=== PATIENT | female | born 1935 | race Caucasian/White ===

== ENCOUNTER 2017-08-29 19:10 | Emergency (ER) | payer MEDICARE, BC ==
[2017-08-29] MEDS ORDERED: HYDROmorphone 0.5 MG/0.5 ML SYRINGE IVPUSH ONE (20:02)
[2017-08-29] MEDS ORDERED: Ondansetron 4 MG/2 ML SDV IVPUSH ONE (20:02)
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
[2017-08-29] MEDS ORDERED: Sodium Chloride 0.9% 1,000 ML IV SCH (20:15)
--- NOTE | 2017-08-31 07:00 | CT ---
Head CT Technique: Multiple axial sections through the brain were obtained. Intravenous contrast was not utilized. Comparison: No previous intracranial imaging. Findings: Ventricles along with basal cisterns and sulci over the convexities are mildly prominent. Mild diminished density is noted within the periventricular and subcortical white matter which is compatible with small vessel ischemic demyelination change. Slight atherosclerotic calcification is seen within the carotid siphon and within the vertebral vessels. No evidence of intracranial hemorrhage. No midline shift or mass effect is seen. Bone window settings were reviewed which show no acute calvarial abnormality. Visualized sinuses are clear. Impression: 1. Mild senescent change. 2. Nothing acute is seen on noncontrast head CT exam. Diagnostic code #2 I agree with preliminary report from [facility], finalized at 08/29/17, 10:46 PM Central Time
--- NOTE | 2017-08-31 07:00 | CR ---
Thoracic spine: AP and lateral views of the thoracic spine were obtained. Comparison: No previous study is available. Moderate to severe compression deformity noted of T9. Mild compression deformity is noted of T12. Disc space narrowing scattered within the mid and lower thoracic spine as well as scattered endplate osteophytes. Moderate compression deformity is noted of T5. Kyphosis is present. Mild scoliosis is noted. Impression: 1. Compression deformities as noted above. Without old study, uncertain if these are acute or old. MRI exam would be needed to further age these findings if clinically needed. 2. Kyphosis and minimal scoliosis. 3. Degenerative change. Diagnostic code #3
--- NOTE | 2017-08-31 07:00 | CR ---
Chest and right ribs: Frontal view of the chest was obtained as well as three views of the right ribs. Comparison: No previous study. Heart size appears within normal limits. Tortuous thoracic aorta is seen. Lungs are clear with no acute parenchymal change. Bony structures are osteopenic. Slight deformity to several lower right anterior ribs is seen which is most likely due to old healed fractures. Fracture is seen within the posterior sixth rib which may be acute. No additional rib abnormality is noted. Impression: 1. Several old right-sided rib fractures. Possible acute fracture within the right upper chest. 2. Other incidental findings. No acute intrathoracic process is seen. Diagnostic code #3
== END 2017-08-29 22:20 | disposition home or self-care (01) ==
LOC: JD.ED 19:10
DX: S22.41XA Multiple fractures of ribs, right side, initial encounter for closed fracture (principal); S00.03XA Contusion of scalp, initial encounter; I47.1 Supraventricular tachycardia; E86.0 Dehydration; E78.00 Pure hypercholesterolemia, unspecified; I10 Essential (primary) hypertension; F17.210 Nicotine dependence, cigarettes, uncomplicated; W19.XXXA Unspecified fall, initial encounter
CPT/HCPCS: 70450; 71101; 72070; 93005; 96361; 96374; 96375; 99284; J1170; J2405; J7040; 93010

== ENCOUNTER 2018-05-21 17:59 | Emergency (ER) | payer MEDICARE, BC ==
[2018-05-21] MEDS ORDERED: traMADol 50 MG Tab PO ONE (19:58)
--- NOTE | 2018-05-21 20:28 | EDM.PDOC ---
ED HPI GENERAL MEDICAL PROBLEM - General Chief Complaint: Lower Extremity Injury/Pain Stated Complaint: RT HIP PAIN Time Seen by Provider: 05/21/18 18:22 Source of Information: Reports: Patient, RN Notes Reviewed History Limitations: Reports: No Limitations - History of Present Illness INITIAL COMMENTS - FREE TEXT/NARRATIVE: Patient is an 83-year-old female who presents to the ED today for evaluation of right hip pain. She states that this started last night. She said she was sitting in her easy chair recliner when she got up, and then instantly had pain in her right hip area. She denies any trauma to the area or falls. She denies any popping clicking or snapping sounds in the area. She states it is painful to walk or bear weight. If she is resting the pain is about a 3 out of 10, if she is bearing weight or moving the pain is an 8 out of 10. She denies any previous hip injury or replacements. She states that she does not have numbness or tingling in her right leg. Treatments [employer]: Reports: Acetaminophen Right Hip Pain Score (Numeric/FACES): 7 - Related Data Allergies Allergy/AdvReac Type Severity Reaction Status Date / Time No Known Allergies Allergy Verified 08/29/17 19:25 Home Meds: Home Meds Aspirin [Halfprin] 81 mg PO DAILY 08/29/17 [History] Rosuvastatin [Crestor] 10 mg PO DAILY 08/29/17 [History] amLODIPine Besylate [Norvasc] 10 mg PO DAILY 08/29/17 [History] Ascorbate Calcium [Vitamin C] 500 mg PO DAILY 05/21/18 [History] Metoprolol Succinate [Toprol XL] 25 mg PO DAILY 05/21/18 [History] Warfarin Sodium [Jantoven] 5 mg PO DAILY 05/21/18 [History] traMADol [Ultram] 50 mg PO Q6H PRN #28 tab 05/21/18 [Rx] Past Medical History HEENT History: Reports: Impaired Vision Cardiovascular History: Reports: High Cholesterol, Hypertension [employer]TER History: Reports: Musculoskeletal History: Reports: Fracture - Past Surgical History HEENT Surgical History: Reports: Cataract Surgery, Tonsillectomy GI Surgical History: Reports: Appendectomy Female Surgical History: Reports: Hysterectomy Social & Family History - Tobacco Use Smoking Status *Q: Current Every Day Smoker Years of Tobacco use: 45 Packs/Tins Daily: 1 - Caffeine Use Caffeine Use: Reports: None - Recreational Drug Use Recreational Drug Use: No Review of Systems - Review of Systems Review Of Systems: See Below Constitutional: Reports: No Symptoms Eyes: Reports: No Symptoms Ears: Reports: No Symptoms Nose: Reports: No Symptoms Mouth/Throat: Reports: No Symptoms Respiratory: Reports: No Symptoms Cardiovascular: Reports: No Symptoms GI/Abdominal: Reports: No Symptoms Genitourinary: Reports: No Symptoms Musculoskeletal: Reports: Joint Pain (Right hip), Muscle Pain. Denies: Leg Pain , Joint Swelling, Muscle Stiffness Skin: Reports: No Symptoms Neurological: Reports: Gait Disturbance (limping). Denies: Numbness, Tingling Psychiatric: Reports: No Symptoms ED EXAM, GENERAL - Physical Exam Exam: See Below Exam Limited By: No Limitations General Appearance: Alert, WD/WN, No Apparent Distress Eye Exam: Bilateral Eye: EOMI, Normal Inspection, PERRL Ears: Normal External Exam Nose: Normal Inspection Throat/Mouth: Normal Inspection, Normal Oropharynx, No Airway Compromise Head: Atraumatic, Normocephalic Neck: Normal Inspection Respiratory/Chest: No Respiratory Distress, Lungs Clear, Normal Breath Sounds, No Accessory Muscle Use, Chest Non-Tender Cardiovascular: Normal Peripheral Pulses, Regular Rate, Rhythm, No Murmur GI/Abdominal: Normal Bowel Sounds, Soft, Non-Tender, No Distention Back Exam: Normal Inspection, Full Range of Motion Extremities: Normal Inspection, Limited Range of Motion (abduction of right leg causes increased pain, but has normal ROM. Pt has limping gait due to pain. There is point tenderness to later portion of right upper thigh over the tensor fascia.) Neurological: Alert, Oriented, Normal Cognition, No Motor/Sensory Deficits Psychiatric: Normal Affect, Normal Mood Skin Exam: Warm, Dry, Intact, Normal Color, No Rash Course - Vital Signs Last Recorded V/S: Last Vital Signs Temp 98.9 F 05/21/18 18:15 Pulse 77 05/21/18 18:15 Resp 18 05/21/18 18:15 BP 139/68 05/21/18 18:15 Pulse Ox 94 L 05/21/18 18:15 - Orders/Labs/Meds Orders: Active Orders 24 hr Category Date Time Status Hip Min 2V or 3V Rt [CR] Stat Exams 02/22/19 18:23 Taken Meds: Medications Discontinued Medications Generic Name Dose Route Start Last Admin Trade Name Jaclyn PRN Reason Stop Dose Admin Tramadol HCl 50 mg 05/21/18 19:58 05/21/18 20:04 Ultram PO 05/21/18 19:59 50 mg ONETIME ONE Administration - Re-Assessments/Exams Free Text/Narrative Re-Assessment/Exam: 05/21/18 19:59 Patient presents to the ED for the evaluation of right hip pain. Right hip X- ray was obtained and does not demonstrate any obvious signs of acute fracture or bony abnormalities. This was reviewed with Dr. Galindo. Official radiology read has not been done yet and I am suspicious that she pulled or strained a muscle over the right thigh. I have ordered 50 mg tramadol to see if this provided relief to her. 05/21/18 20:48 Patient was ambulated down the sage and she states that the pain is much better. Provided her with some tabs of tramadol 50mg, sent to [facility] on [address] as per her choice. Other general recommendations were given for musculoskeletal discomfort. Departure - Departure Time of Disposition: 20:31 Disposition: Home, Self-Care 01 Condition: Fair Clinical Impression: Strain of muscle of right hip Qualifiers: Encounter type: initial encounter Qualified Code(s): S76.011A - Strain of muscle, fascia and tendon of right hip, initial encounter - Discharge Information *PRESCRIPTION DRUG MONITORING PROGRAM REVIEWED*: No *COPY OF PRESCRIPTION DRUG MONITORING REPORT IN PATIENT MIKE: No Prescriptions: traMADol [Ultram] 50 mg PO Q6H PRN #28 tab PRN Reason: Pain Instructions: Muscle Strain, [id number], Pain Medicine Instructions, Easy-to- Read Referrals: Wolfgang Rasmussen MD [Primary Care Provider] - Forms: ED Department Discharge Additional Instructions: You have been evaluated in the ED for your right hip pain. Your x-ray demonstrated no acute fracture or bony abnormality. Your symptoms are likely felt to be a muscle strain of the right hip. Please use ice/heat as tolerated to the affected area. You may take tylenol 500 mg q6 hrs for pain relief. Please do so until you have a tolerable level of pain with activity. Do not exceed 4000mg tylenol in one day. Please take the tramadol every 6 hours as needed for pain not relieved by Tylenol alone. The tramadol script was sent to [facility] on [address]. If this is not much better within 1-2 weeks time, you should follow up with your primary care doctor for re-evaluation. Please return to ED if your symptoms should change or worsen. - My Orders Last 24 Hours: My Active Orders 05/21/18 18:23 Hip Min 2V or 3V Rt [CR] Stat - Assessment/Plan Last 24 Hours: My Active Orders 05/21/18 18:23 Hip Min 2V or 3V Rt [CR] Stat
--- NOTE | 2018-05-22 09:39 | CR ---
Right hip: AP and frog-leg lateral views of the right hip were obtained. Comparison: No previous study. Osteopenia is present. Joint space within the right hip is preserved. No acute fracture or other abnormality is appreciated. Impression: 1. Osteopenia. Right hip exam is otherwise unremarkable. Diagnostic code #2
== END 2018-05-21 20:42 | disposition home or self-care (01) ==
LOC: JD.ED 17:59
DX: S76.011A Strain of muscle, fascia and tendon of right hip, initial encounter (principal); F17.210 Nicotine dependence, cigarettes, uncomplicated; I10 Essential (primary) hypertension; E78.00 Pure hypercholesterolemia, unspecified; Z79.01 Long term (current) use of anticoagulants; Z79.899 Other long term (current) drug therapy; Z79.82 Long term (current) use of aspirin; X58.XXXA Exposure to other specified factors, initial encounter
CPT/HCPCS: 73502; 99283; A9270